=== PATIENT | female | born 1970 | race Caucasian/White ===

== ENCOUNTER → 2016-11-13 | Outpatient (CLI) | payer OTHER ==
[~2016-11-13] MED LIST: AMIT10TA6 PO; AMT10 PO; ASPCH81 PO; ASPI81TA28 PO; EPP3/2 IM; IBUP-1050 PO; LEVO75TA5 PO; OXYC1TAB3 PO; PROM25TA9 PO; SUMA100T16 PO
== END | disposition home or self-care (01) ==
LOC: C.PAPS 09:04
PROVIDERS: ATTEND Obstetrics & Gynecology
DX: Z01.419 Encounter for gynecological examination (general) (routine) without abnormal findings (principal)

== ENCOUNTER → 2016-11-19 | Outpatient (CLI) | payer OTHER | END | disposition home or self-care (01) | LOC: C.LAB 13:57 | PROVIDERS: ATTEND Obstetrics & Gynecology | DX: N95.1 Menopausal and female climacteric states (principal); G47.00 Insomnia, unspecified ==

== ENCOUNTER 2017-03-13 20:51 | Emergency (ER) | payer OTHER ==
[~2017-03-13] VITALS: Ht 162.6 cm; Wt 79.1 kg
[~2017-03-13 20:51] MED LIST changes: -AMIT10TA6 PO; -ASPI81TA28 PO; -EPP3/2 IM; -IBUP-1050 PO; -LEVO75TA5 PO; -OXYC1TAB3 PO; -PROM25TA9 PO; -SUMA100T16 PO
[2017-03-13 20:53] VITALS: TEMP 37; Ht 162.6 cm; Wt 79.1 kg
[2017-03-13] MEDS ORDERED: SODIUM CHLORIDE 0.9% 1000ML 1,000 ML IV STA ×2 (21:05)
[2017-03-13] MEDS ORDERED: ASPI81TA28 PO (21:15)
[2017-03-13] MEDS ORDERED: AMIT10TA6 PO (21:16)
[2017-03-13] MEDS ORDERED: LEVO75TA5 PO (21:17)
[2017-03-13] MEDS ORDERED: SUMA100T16 PO (21:20)
[2017-03-13] MEDS ORDERED: EPP3/2 IM (21:20)
[2017-03-13] MEDS ORDERED: IBUP-1050 PO (21:21)
[2017-03-13 21:40] LABS: URINE APPEARANCE CLEAR (CLEAR); URINE BILIRUBIN NEG (NEG); URINE COLOR YELLOW; URINE NITRITE NEG (NEG); URINE PH 6.5 (4.5-7.5); URINE SPECIFIC GRAVITY 1.017 (1.000-1.030); UROBILINOGEN NEG (NEG); ZZUR CULT IF INDIC CLEAN CATCH NO
[2017-03-13 21:41] LABS: BASO % 0.4 %; BASO ABS # 0.04 K/uL (0-0.2); COMPLETE YES; EOS % 1.7 %; IG% 0.2 %; LYMPH % 24.6 %; LYMPH ABS # 2.58 K/uL (1.2-3.4); MEAN CELL VOLUME 92.3 fL (80-100); MEAN CORPUSCULAR HGB CONC 33.6 g/dl (32-36); MEAN PLATELET VOLUME 11.4 fL (7.4-10.4); MONO % 8.3 %; NEUT % 64.8 %; PLATELET COUNT 231 K/uL (130-400); RED BLOOD COUNT 4.55 M/uL (4.2-5.4)
[2017-03-13 21:44] LABS: MANUAL MICROSCOPIC REQUIRED? NO; REVIEW REQ? NO
[2017-03-13 21:57] LABS: ALT/SGPT 32 U/L (12-78); BLOOD UREA NITROGEN 15 mg/dl (7-18); BUN/CREATININE RATIO 13.4 (10-20); CALCIUM 9.6 mg/dl (8.5-10.1); CARBON DIOXIDE 28 mmol/L (21-32); CHLORIDE 104 mmol/L (98-107); GLUCOSE 89 mg/dl (70-99); POTASSIUM 3.6 mmol/L (3.5-5.1); SODIUM 139 mmol/L (136-145)
[2017-03-13 22:01] LABS: ALKALINE PHOSPHATASE 102 U/L (45-117); AST/SGOT 23 U/L (15-37)
[2017-03-13 22:12] LABS: PREG INTERNAL NEGATIVE QC NEG CLEAR BACKGROUND; PREG INTERNAL POSITIVE QC POS CONTROL LINE
--- NOTE | 2017-03-13 22:16 | DIAGNOSTIC IMAGING REPORT ---
ABDOMINAL ULTRASOUND, RIGHT UPPER QUADRANT HISTORY: Right upper quadrant abdominal pain. COMPARISON: None. FINDINGS: Liver morphology is normal. Hepatic echogenicity is increased. A 4.8 x 2.3 x 3.2 cm hypoechoic focus is noted within the liver, adjacent to the isidro hepatis. Note is also made of a 2.5 x 2 x 2.5 cm round hypoechoic focus within segment 5 of the liver. There is no biliary ductal dilatation. No gallstones are identified. The gallbladder is partially contracted. There is no gallbladder wall thickening. There is no right hydronephrosis. The pancreatic body is normal. The head and tail are partially obscured. IMPRESSION: 1. No gallstones or biliary ductal dilatation. 2. Fatty liver. 3. Two hypoechoic foci within the liver. The 4.8 cm focus adjacent to the isidro hepatis is highly suggestive of fatty sparing. The 2.5 cm inferior right hepatic lobe focus also likely reflects fatty sparing but is indeterminate. A nonemergent MRI of the liver is recommended. Electronically signed by: Tre Liz M.D. 03/13/2017 10:15 PM Dictated Date/Time: 03/13/2017 10:09 PM
--- NOTE | 2017-03-13 23:17 | DIAGNOSTIC IMAGING REPORT ---
CT OF THE ABDOMEN AND PELVIS WITH CONTRAST CLINICAL HISTORY: Right upper quadrant abdominal pain. COMPARISON STUDY: Right upper quadrant ultrasound performed earlier today. TECHNIQUE: Following IV administration of 51 mL of Optiray-320, axial images of the abdomen and pelvis were obtained from the lung bases to the proximal femurs. Images were reviewed in the axial, sagittal, and coronal planes. IV contrast was administered without complication. CT DOSE: 533.36 mGy.cm FINDINGS: Fatty infiltration of the liver is noted. Hyperdensity within the medial segment of the liver corresponds to a hypoechoic focus on ultrasound and represents fatty sparing. A 2.5 cm round hyperdense focus within the inferior right hepatic lobe corresponds to the other hypoechoic focus by ultrasound. This also likely reflects fatty sparing. The spleen, adrenal glands, kidneys and pancreas are normal. There is no evidence for a bowel obstruction. The appendix is normal. Note is made of a 6 x 2.6 cm focus of infiltration within the right upper quadrant, located within the omentum. There is no fluid collection to suggest abscess. There is no lymphadenopathy. Skeletal structures are unremarkable with exception of marked disc space narrowing at L5-S1. This is degenerative. IMPRESSION: 1. 6 x 2.6 cm focus of infiltration within the right upper quadrant, located within the omentum. This is highly suggestive of an omental infarct, typically a self-limiting process. 2. Fatty liver. Two hyperdensities within the liver on this exam correspond to the hypoechoic foci on ultrasound. The medial segment focus represents fatty sparing. The inferior right hepatic lobe focus also likely reflects fatty sparing but a nonemergent MRI is recommended for confirmation. Electronically signed by: Tre Liz M.D. 03/13/2017 11:15 PM Dictated Date/Time: 03/13/2017 11:05 PM
[2017-03-13] MEDS ORDERED: OXYC1TAB3 PO (23:42)
[2017-03-13] MEDS ORDERED: PROM25TA9 PO (23:42)
[2017-03-13] MEDS ORDERED: OXYCODONE IR HOME PACK PO ONE (23:45)
[2017-03-13] MEDS ORDERED: PHENERGAN 25MG HOMEPACK PO ONE (23:45)
[2017-03-13 23:47] VITALS: BP 152/94; PULSE 69; O2SAT 99
--- NOTE | 2017-03-14 03:13 | EMERGENCY ROOM VISIT NOTE ---
History Report prepared by Mohinder: Suma Cerrato Under the Supervision of: Dr. Raul Pablo M.D. First contact with patient: 21:01 Chief Complaint: ABDOMINAL PAIN Stated Complaint: R UPPER ABD PAIN History of Present Illness The patient is a 46 year old female who presents to the Emergency Room with complaints of sudden right upper quadrant abdominal pain beginning 4 days ago. The patient states that within the past 4 days the pain has been moving around her abdomen. She rates the pain at a 5/10. The patient states that at first she thought the pain was gas or a pulled muscle after dancing. The patient denies falling or getting hit in her abdomen. Moving, coughing, and taking deep breaths exacerbates the pain. She reports that she feels bloated. The patient took 2 Motrin 1 hour prior to arrival for a headache. The patient states that she recently traveled to [place] which was a [address] The patient denies any history of stomach problems. She has a history of 2 lumbar laminectomies. She also states that she has no family history of gallbladder problems. Pt denies LOC, fevers, chills, diaphoresis, visual changes, neck pain , chest pain, breathing difficulties, nausea, vomiting, back pain, melena, hematochezia, urinary symptoms, numbness, weakness, lymphadenopathy, rash, or other complaints. Source of History: patient Onset: 4 days ago Position: abdomen (RUQ) Symptom Intensity: rated at a 5/10 Modifying Factors (Worsening): breathing (deep breaths), movement, other ( coughing) Associated Symptoms: + headache Review of Systems See HPI for pertinent positives and negatives. A total of ten systems were reviewed and were otherwise negative. Past Medical & Surgical Medical Problems: (1) Asthma (2) Bronchitis (3) Skin problem Surgical Problems: (1) H/O laminectomy Family History Cancer Diabetes mellitus FH: kidney disease Hypertension Social History Smoking Status: Former Smoker Alcohol Use: occasionally Drug Use: none Marital Status: Occupation Status: employed Current/Historical Medications Scheduled Amitriptyline Hcl (Elavil), 10 MG PO HS Aspirin (Aspirin Ec), 81 MG PO HS Ibuprofen (Advil), 400 MG PO DAILY Levothyroxine Sodium (Levothyroxine Sodium), 1 TAB PO QAM Scheduled PRN Epinephrine (Epipen), 0.3 MG IM UD PRN for ALLERGIC REACTION Oxycodone Ir (Roxicodone Ir), 1-2 TAB PO Q4H PRN for Pain Promethazine Hcl (Phenergan), 25 MG PO Q6H PRN for Nausea Sumatriptan Succinate (Imitrex), 100 MG PO Q2H PRN for Migraine Allergies Coded Allergies: NUTS (Unverified Allergy, Intermediate, HIVES, 03/13/17) Iodine (Verified Allergy, Unknown, 03/13/17) Penicillins (Verified Allergy, Unknown, 10/18/09) Sulfa Drugs (Verified Allergy, Unknown, 03/13/17) Sulfamethoxazole (Verified Allergy, Unknown, 03/13/17) Uncoded Allergies: SEAFOOD (Allergy, Intermediate, HIVES, 08/19/11) SULFA (Allergy, Mild, RASH, 08/19/11) SEAFOOD,NUTS (Allergy, Unknown, 10/26/02) Physical Exam Vital Signs Date Time Temp Pulse Resp B/P (MAP) Pulse Ox O2 Delivery O2 Flow Rate FiO2 03/13/17 23:47 69 18 152/94 99 Room Air 03/13/17 22:24 74 12 138/85 97 03/13/17 20:53 37.0 82 18 175/94 97 Room Air Physical Exam GENERAL: Awake, alert, uncomfortable-appearing, in no distress HENT: Normocephalic, atraumatic. Oropharynx unremarkable. EYES: Normal conjunctiva. Sclera non-icteric. NECK: Supple. No nuchal rigidity. FROM. No JVD. RESPIRATORY: Clear to auscultation. CARDIAC: Regular rate, normal rhythm. Extremities warm and well perfused. Pulses equal. ABDOMEN: Soft, non-distended. Very exquisite RUQ tenderness. Tenderness to percussion. No rebound. Guarding. No masses. RECTAL: Deferred. MUSCULOSKELETAL: Chest examination reveals no tenderness. The back is symmetrical on inspection without obvious abnormality. There is no CVA tenderness to palpation. No joint edema. LOWER EXTREMITIES: Calves are equal size bilaterally and non-tender. No edema. No discoloration. NEURO: Normal sensorium. No sensory or motor deficits noted. SKIN: No rash or jaundice noted. Medical Decision & Procedures ER Provider Diagnostic Interpretation: Radiology results as stated below per my review and radiologist interpretation: ABDOMINAL ULTRASOUND, RIGHT UPPER QUADRANT HISTORY: Right upper quadrant abdominal pain. COMPARISON: None. FINDINGS: Liver morphology is normal. Hepatic echogenicity is increased. A 4.8 x 2.3 x 3.2 cm hypoechoic focus is noted within the liver, adjacent to the isidro hepatis. Note is also made of a 2.5 x 2 x 2.5 cm round hypoechoic focus within segment 5 of the liver. There is no biliary ductal dilatation. No gallstones are identified. The gallbladder is partially contracted. There is no gallbladder wall thickening. There is no right hydronephrosis. The pancreatic body is normal. The head and tail are partially obscured. IMPRESSION: 1. No gallstones or biliary ductal dilatation. 2. Fatty liver. 3. Two hypoechoic foci within the liver. The 4.8 cm focus adjacent to the isidro hepatis is highly suggestive of fatty sparing. The 2.5 cm inferior right hepatic lobe focus also likely reflects fatty sparing but is indeterminate. A nonemergent MRI of the liver is recommended. Electronically signed by: Tre Liz M.D. 03/13/2017 10:15 PM Dictated Date/Time: 03/13/2017 10:09 PM [[id number]]: Radiology results as stated below per my review and radiologist interpretation CT OF THE ABDOMEN AND PELVIS WITH CONTRAST CLINICAL HISTORY: Right upper quadrant abdominal pain. COMPARISON STUDY: Right upper quadrant ultrasound performed earlier today. TECHNIQUE: Following IV administration of 51 mL of Optiray-320, axial images of the abdomen and pelvis were obtained from the lung bases to the proximal femurs. Images were reviewed in the axial, sagittal, and coronal planes. IV contrast was administered without complication. CT DOSE: 533.36 mGy.cm FINDINGS: Fatty infiltration of the liver is noted. Hyperdensity within the medial segment of the liver corresponds to a hypoechoic focus on ultrasound and represents fatty sparing. A 2.5 cm round hyperdense focus within the inferior right hepatic lobe corresponds to the other hypoechoic focus by ultrasound. This also likely reflects fatty sparing. The spleen, adrenal glands, kidneys and pancreas are normal. There is no evidence for a bowel obstruction. The appendix is normal. Note is made of a 6 x 2.6 cm focus of infiltration within the right upper quadrant, located within the omentum. There is no fluid collection to suggest abscess. There is no lymphadenopathy. Skeletal structures are unremarkable with exception of marked disc space narrowing at L5-S1. This is degenerative. IMPRESSION: 1. 6 x 2.6 cm focus of infiltration within the right upper quadrant, located within the omentum. This is highly suggestive of an omental infarct, typically a self-limiting process. 2. Fatty liver. Two hyperdensities within the liver on this exam correspond to the hypoechoic foci on ultrasound. The medial segment focus represents fatty sparing. The inferior right hepatic lobe focus also likely reflects fatty sparing but a nonemergent MRI is recommended for confirmation. Electronically signed by: Tre Liz M.D. 03/13/2017 11:15 PM Dictated Date/Time: 03/13/2017 11:05 PM Laboratory Results 03/13/17 21:20 Red Blood Count 4.55, Mean Corpuscular Volume 92.3, Mean Corpuscular Hemoglobin 31.0, Mean Corpuscular Hemoglobin Concent 33.6, Mean Platelet Volume 11.4, Neutrophils (%) (Auto) 64.8, Lymphocytes (%) (Auto) 24.6, Monocytes (%) (Auto) 8.3, Eosinophils (%) (Auto) 1.7, Basophils (%) (Auto) 0.4, Neutrophils # (Auto) 6.81, Lymphocytes # (Auto) 2.58, Monocytes # (Auto) 0.87, Eosinophils # (Auto) 0.18, Basophils # (Auto) 0.04 03/13/17 21:20 Test 03/13/17 21:10 03/13/17 21:20 Urine Color YELLOW Urine Appearance CLEAR (CLEAR) Urine pH 6.5 (4.5-7.5) Urine Specific [place] 1.017 (1.000-1.030) Urine Protein NEG (NEG) Urine Glucose (UA) NEG (NEG) Urine Ketones NEG (NEG) Urine Occult Blood NEG (NEG) Urine Nitrite NEG (NEG) Urine Bilirubin NEG (NEG) Urine Urobilinogen NEG (NEG) Urine Leukocyte Esterase NEG (NEG) White Blood Count 10.50 K/uL (4.8-10.8) Red Blood Count 4.55 M/uL (4.2-5.4) Hemoglobin 14.1 g/dL (12.0-16.0) Hematocrit 42.0 % (37-47) Mean Corpuscular Volume 92.3 fL (80-100) Mean Corpuscular Hemoglobin 31.0 pg (25-34) Mean Corpuscular Hemoglobin Concent 33.6 g/dl (32-36) Platelet Count 231 K/uL (130-400) Mean Platelet Volume 11.4 fL (7.4-10.4) Neutrophils (%) (Auto) 64.8 % Lymphocytes (%) (Auto) 24.6 % Monocytes (%) (Auto) 8.3 % Eosinophils (%) (Auto) 1.7 % Basophils (%) (Auto) 0.4 % Neutrophils # (Auto) 6.81 K/uL (1.4-6.5) Lymphocytes # (Auto) 2.58 K/uL (1.2-3.4) Monocytes # (Auto) 0.87 K/uL (0.11-0.59) Eosinophils # (Auto) 0.18 K/uL (0-0.5) Basophils # (Auto) 0.04 K/uL (0-0.2) RDW Standard Deviation 45.3 fL (36.4-46.3) RDW Coefficient of Variation 13.5 % (11.5-14.5) Immature Granulocyte % (Auto) 0.2 % Immature Granulocyte # (Auto) 0.02 K/uL (0.00-0.02) Anion Gap 7.0 mmol/L (3-11) Est Creatinine Clear Calc Drug Dose 65.1 ml/min Estimated GFR () 69.7 Estimated GFR (Non- 60.2 BUN/Creatinine Ratio 13.4 (10-20) Calcium Level 9.6 mg/dl (8.5-10.1) Total Bilirubin 0.2 mg/dl (0.2-1) Direct Bilirubin < 0.1 mg/dl (0-0.2) Aspartate Amino Transf (AST/SGOT) 23 U/L (15-37) Alanine Aminotransferase (ALT/SGPT) 32 U/L (12-78) Alkaline Phosphatase 102 U/L (45-117) Total Protein 7.7 gm/dl (6.4-8.2) Albumin 3.9 gm/dl (3.4-5.0) Lipase 125 U/L (73-393) Human Chorionic Gonadotropin, Qual NEG (NEG) Laboratory results reviewed by me Medications Administered Medications (Trade) Dose Ordered Sig/[place] Route Start Time Stop Time Status Last Admin Dose Admin Sodium Chloride 1,000 ml @ 125 mls/hr Q8H STAT IV 03/13/17 21:05 03/14/17 00:41 DC 03/13/17 21:35 125 MLS/HR Sodium Chloride 1,000 ml @ 999 mls/hr Q1H1M STAT IV 03/13/17 21:05 03/13/17 22:05 DC 03/13/17 21:34 999 MLS/HR Oxycodone HCl (Roxicodone Immediate Rel 5MG Home Pack) 1 homepack UD ONCE PO 03/13/17 23:45 03/13/17 23:46 DC 03/13/17 23:46 1 HOMEPACK Promethazine HCl (Phenergan 25MG Home Pack) 1 homepack UD ONCE PO 03/13/17 23:45 03/13/17 23:46 DC 03/13/17 23:46 1 HOMEPACK ED Course 2104: The patient was evaluated in room C11. A complete history and physical exam was performed. 2105: Ordered Sodium Chloride 1,000 ml @ 999 mls/hr IV, Sodium Chloride 1,000 ml @ 125 mls/hr IV. 2244: The patient is still uncomfortable. We will get a CT scan of her. 2331: I updated the patient on her test results. 2345: Ordered Promethazine HCl 1 homepack PO, Oxycodone HCl 1 homepack PO. 2355: I reevaluated the patient. Discussed results and discharge instructions: She verbalized understanding and agreement. The patient is ready for discharge. Medical Decision Medication Reconciliation: I attest that I have personally reviewed the patient' s current medication list Blood pressure screening: Patient was found to have an elevated blood pressure and was referred to their primary doctor for recheck and further treatment. Triage Nursing notes reviewed. The patient's presentation and history were concerning for abdominal pain. Etiologies such as appendicitis, diverticulitis, obstruction, inflammatory bowel disease, renal colic, PUD, biliary pathology, pancreatitis, mesenteric ischemia, aortic pathology, infections, genitourinary, UTI, perforated viscus, as well as others were entertained. The patient was evaluated. She had tenderness in the right upper quadrant. This was concerning for the above etiologies but I was most concerned about a gallbladder source. The patient had blood work obtained. She was hydrated. Ultrasound was ordered. This was negative for biliary pathology however there were some abnormalities noted about the liver. The patient was counseled on this and will need a nonemergent outpatient liver MRI. The patient underwent CT imaging as she was very uncomfortable and the ultrasound was unremarkable. Her cbc, chemistry panel, LFTs, lipase, and urinalysis were negative. The patient underwent CT imaging in this did reveal an omental infarction. I suspect that this is the cause of the pain as it is exactly where she is tender on examination. This would explain her lack of fever, anorexia and other symptoms. I suspect that this was a spontaneous event. I discussed conservative management with the patient and she felt very comfortable. She will use NSAIDs, Tylenol, and when necessary oxycodone. In case she has any nausea from the condition or pain medication she will be prescribed Phenergan as well. The patient will need close outpatient follow-up. Her blood pressure was mildly elevated. If she worsens in any way she will be back to the Emergency Room. There is no indication for antibiotics at this time. I gave my usual and customary discussion regarding this issue. By the evaluation outlined above other emergent etiologies such as those listed in the differential, as well as others, were deemed relatively unlikely. The patient was educated about the findings as listed above. All questions were answered and the patient was pleased with the treatment. Return instructions were outlined and the patient was discharged in stable condition. The patient was referred to her for follow-up for a recheck of the current condition. [place] Drug Monitoring Program Search Results: patient reviewed within database, no issues identified Impression Primary Impression: Omental infarction Scribe Attestation The scribe's documentation has been prepared under my direction and personally reviewed by me in its entirety. I confirm that the note above accurately reflects all work, treatment, procedures, and medical decision making performed by me. Departure Information Dispostion Home / Self-Care Prescriptions Oxycodone Ir (Roxicodone Ir) 5 Mg Tab 1-2 TAB PO Q4H Y for Pain, #15 TAB Prov: Raul Pablo MD 03/13/17 Promethazine Hcl (Phenergan) 25 Mg Tab 25 MG PO Q6H Y for Nausea, #8 TAB Prov: Raul Pablo MD 03/13/17 Referrals Rocky Rhodes M.D. ([facility]) (PCP) Forms Call Back Authorization, HOME CARE DOCUMENTATION FORM, IMPORTANT VISIT INFORMATION Patient Instructions My [facility] [place] [employer] Additional Instructions ABDOMINAL PAIN INSTRUCTIONS: Diagnosis: Spontaneous Omental infarction Oxycodone (OxyIR) 5mg: Take 1-2 pills every four hours for breakthrough pain. Avoid alcohol, operating machinery or dangerous equipment, working on ladders or roofs, DRIVING, or situations where being under the influence may be dangerous. It is recommended to use an [id number]-abw-[id number] stool softener such as Colace, 100mg twice daily while taking this medication to avoid constipation. Ibuprofen(Motrin, Advil) may be used for fever or pain. Use 600mg every six hours as needed. Take with food. Avoid using more than 2400mg in a 24 hour period. Do not use 2400mg per day for more than three consecutive days without physician direction. Prolonged inappropriate use can lead to stomach upset or ulcers. (AND/OR) Acetaminophen(Tylenol) may be used for fever or pain. Use 1000mg every six hours as needed. Avoid using more than 4000mg in a 24 hour period. Phenergan(promethazine) tablets 25mg: Take one every six hours as needed for nausea. Avoid alcohol, operating machinery or dangerous equipment, working on ladders or roofs, DRIVING, or situations where being under the influence may be dangerous. Review the package insert for all your medications. This is necessary as important health information is provided for your benefit and current care. Rest and drink plenty of fluids as tolerated. Slow sips of water or sports drinks are recommended instead of large amounts all at once. Continue current medications. Return to the ER immediately for worsening or persistent abdominal pain, vomiting, fevers, chest pains, difficulty breathing, black or bloody stools, worsening of your condition, or as needed. Follow up with your primary physician first thing this week for a recheck of your current condition.
== END 2017-03-13 23:49 | disposition home or self-care (01) ==
LOC: C.EDB 20:52 → C.EDC 23:49
DX: K55.069 Acute infarction of intestine, part and extent unspecified (principal); J45.909 Unspecified asthma, uncomplicated; Z80.9 Family history of malignant neoplasm, unspecified; Z83.3 Family history of diabetes mellitus; Z84.1 Family history of disorders of kidney and ureter; Z82.49 Family history of ischemic heart disease and other diseases of the circulatory system; Z87.891 Personal history of nicotine dependence; Z79.82 Long term (current) use of aspirin; Z79.899 Other long term (current) drug therapy

== ENCOUNTER → 2017-11-29 | Outpatient (CLI) | payer OTHER ==
[~2017-11-29] MED LIST changes: +AMIT10TA6 PO; -AMT10 PO; -ASPCH81 PO; +ASPI81TA28 PO; +EPP3/2 IM; +IBUP-1050 PO; +LEVO75TA5 PO; +SUMA100T16 PO
== END | disposition home or self-care (01) ==
LOC: C.PAPS 14:48
PROVIDERS: ATTEND Obstetrics & Gynecology
DX: Z01.419 Encounter for gynecological examination (general) (routine) without abnormal findings (principal)

== ENCOUNTER 2020-01-08 04:02 | Observation (INO) ==
--- OUTSIDE RECORDS SUMMARY | 2020-01-08 04:05 | External Medical Summary | Continuity of Care Document ---
:1970 Author Name Efrain German, Provider Address Unavailable Unavailable , Care Team Providers Name Role Phone Nima German, Devin Unavailable [email or web address] TATYANA MACIAS Unavailable Unavailable Unavailable Unavailable Unavailable Problems Paronychia (681.9) Hand dermatitis (692.9) (L30.9) Allergies and Adverse Reactions Sulfa Drugs (Allergy) Nuts (Allergy) Shellfish (Allergy) Medications Lidex OINT; APPLY SPARINGLY TO AFFECTED AREA(S) ONCE DAILY P M Refills: 0 Metrogel 0.75 % GEL; APPLY AND RUB IN A THIN FILM TO AFFECTED AREAS DAILY NEEDED Refills: 0 Amitriptyline HCl - 10 MG Oral Tablet; TAKE 1/2 TABLET AT BE [facility]. Refills: 0 Aspirin 81 MG TABS; TAKE 1 TABLET DAILY. Refills: 0 Nystatin-Triamcinolone 202400-2.1 UNIT/G M-% External Ointment; APPLY SPARINGLY TO AFFECTED AREA(S) TWICE DAILY Maxi Herring Start: 22-Oct-2014 Quantity: 1 30 GM Tube Refills: 2 Procedures Procedures not documented Immunizations Immunizations not documented Plan of Treatment Planned Observations Planned Goals not documented Results No Known Results Results not documented
--- OUTSIDE RECORDS SUMMARY | 2020-01-08 04:05 | External Medical Summary | Continuity of Care Document ---
:1970 Author Name Efrain German, Provider Address Unavailable Unavailable , Care Team Providers Name Role Phone Nima German, Devin Unavailable [email or web address] TATYANA MACIAS Unavailable Unavailable Unavailable Unavailable Unavailable Problems Paronychia (681.9) Hand dermatitis (692.9) (L30.9) Allergies and Adverse Reactions Sulfa Drugs (Allergy) Nuts (Allergy) Shellfish (Allergy) Medications Nystatin-Triamcinolone 421088-9.1 UNIT/G M-% External Ointment; APPLY SPARINGLY TO AFFECTED AREA(S) TWICE DAILY Maxi Herring Start: 22-Oct-2014 Quantity: 1 30 GM Tube Refills: 2 Amitriptyline HCl - 10 MG Oral Tablet; TAKE 1/2 TABLET AT BE [facility]. Refills: 0 Aspirin 81 MG TABS; TAKE 1 TABLET DAILY. Refills: 0 Lidex OINT; APPLY SPARINGLY TO AFFECTED AREA(S) ONCE DAILY P M Refills: 0 Metrogel 0.75 % GEL; APPLY AND RUB IN A THIN FILM TO AFFECTED AREAS DAILY NEEDED Refills: 0 Procedures Procedures not documented Immunizations Immunizations not documented Plan of Treatment Planned Observations Planned Goals not documented Results No Known Results Results not documented
[2020-01-08] MEDS ORDERED: FAMOTIDINE 20MG IV PUSH 20 MG/5 ML SYR IV STA (04:28)
[2020-01-08] MEDS ORDERED: GI COCKTAIL ED USE PO ONE (04:28)
[2020-01-08] MEDS ORDERED: ONDANSETRON INJ 2 MG/ML 2 ML VIAL IV STA (04:28)
[2020-01-08] MEDS ORDERED: SODIUM CHLORIDE 0.9% 1000ML 1,000 ML IV SCH (04:30)
[2020-01-08 04:52] LABS: Basophils # (auto) 0.03 K/uL (0-0.2); Basophils % (auto) 0.2 %; Eosinophils # (auto) 0.02 K/uL (0-0.5); Eosinophils % (auto) 0.2 %; Hematocrit (blood only) 40.1 % (37-47); Hemoglobin 13.3 g/dL (12.0-16.0); Immature Granulocytes # (auto) 0.03 K/uL (0.00-0.02); Immature Granulocytes % (auto) 0.2 %; Lymphocytes # (auto) 1.26 K/uL (1.2-3.4); Mean Corpuscular Hemoglobin 31.4 pg (25-34); Mean Corpuscular Hgb Conc 33.2 g/dL (32-36); Mean Corpuscular Volume 94.6 fL (80-100); Mean Platelet Volume 11.8 fL (7.4-10.4); Monocytes % (auto) 4.8 %; Neutrophils # (auto) 10.68 K/uL (1.4-6.5); Neutrophils % (auto) 84.6 %; Platelet Count 256 K/uL (130-400); RDW Coefficient of Variation 13.5 % (11.5-14.5); RDW Standard Deviation 46.3 fL (36.4-46.3); Red Blood Count 4.24 M/uL (4.2-5.4); White Blood Count 12.62 K/uL (4.8-10.8)
[2020-01-08 05:08] LABS: Alanine Aminotransferase 42 U/L (12-78); Albumin Level 4.1 gm/dl (3.4-5.0); Aspartate Aminotransferase 25 U/L (15-37); BUN Creatinine Ratio 18.8 (10-20); Blood Urea Nitrogen 18 mg/dl (7-18); Calcium 9.2 mg/dl (8.5-10.1); Carbon Dioxide 26 mmol/L (21-32); Chloride 109 mmol/L (98-107); Creatinine Clr Calc Pharmacy 73.3 ml/min; Est GFR (African American) 80.5; Est GFR (Non-African American) 69.4; Glucose 132 mg/dl (70-99); Lipase 114 U/L (73-393); Potassium 3.5 mmol/L (3.5-5.1); Sodium 142 mmol/L (136-145)
[2020-01-08 05:13] LABS: Albumin Globulin Ratio 1.1 (0.9-2); Alkaline Phosphatase 97 U/L (45-117); Bilirubin,Total 0.3 mg/dl (0.2-1); Globulin 3.9 gm/dl (2.5-4.0); Troponin I < 0.015 ng/ml (0-0.045)
[2020-01-08 05:14] LABS: Appearance Urine Clear (Clear); Bacteria Urine Automated Negative (Negative); Bilirubin Urine Negative (Negative); Blood Urine Negative (Negative); Color Urine Yellow; Epithelial Cell Urine Auto >30 /lpf (0-5); Glucose Urine UA Trace (Negative); Ketones Urine Trace (Negative); Leukocyte Esterase Urine Negative (Negative); Nitrite Urine Negative (Negative); Protein Urine 1+ (Negative); Specific Gravity Urine 1.029 (1.000-1.030); Urobilinogen Urine Negative (Negative); pH Urine 6.5 (4.5-7.5)
[2020-01-08] MEDS ORDERED: CIPROFLOXACIN / D5W 400 MG/200 ML BAG IV SCH ×2 (06:00→22:00)
[2020-01-08] MEDS: MoRPHine SULFATE 4 MG/ML 1 ML CARP\\VIAL IV STA ×2 (06:01→06:23)
--- NOTE | 2020-01-08 06:51 | Emergency Department Note ---
History of Present Illness General Chief complaint: GI Assessment Stated complaint: HEARTBURN SINCE 10PM Time Seen by Provider: 01/08/20 04:10 History of Present Illness Maximum Pain Intensity: 7 This is a 49-year-old female presenting to the emergency department for evaluation of epigastric abdominal pain worsening over the past 4 to 5 hours. The patient states around 10 PM yesterday she began with her discomfort. She has been followed by her primary care physician the past few weeks for GERD-like symptoms. The patient has been keeping a food diary, and it does seem that higher fat foods seem to exacerbate her symptoms. She is on Prilosec, which has not significantly helped her symptoms. Patient does not have a history of gallbladder surgery. She rates her current pain a 7/10. She denies chance of . Home Medications Home Medications Medication Instructions Recorded Confirmed Type epinephrine 0.3 mg IM UD PRN 01/08/20 01/08/20 History fluticasone propionate [Flovent 2 puff INHALATION BID 01/08/20 01/08/20 History HFA] levothyroxine 100 mcg PO DAILY 01/08/20 01/08/20 History polyethylene glycol 3350 [Miralax] 8.5 g PO DAILY 01/08/20 01/08/20 History sumatriptan succinate 100 mg PO UD PRN 01/08/20 01/08/20 History Allergies Allergy/AdvReac Type Severity Reaction Status Date / Time nut - unspecified Allergy Intermediate HIVES Unverified 01/08/20 04:17 iodine Allergy Unknown Unknown Verified 01/08/20 04:17 Penicillins Allergy Unknown Unknown Verified 01/08/20 04:17 Sulfa (Sulfonamide Allergy Unknown Unknown Verified 01/08/20 04:17 Antibiotics) sulfamethoxazole Allergy Unknown Unresponsiv Verified 01/08/20 04:17 e SEAFOOD Allergy Intermediate HIVES Uncoded 01/08/20 04:17 SULFA Allergy Mild RASH Uncoded 01/08/20 04:17 SEAFOOD,NUTS Allergy Unknown Unknown Uncoded 01/08/20 04:17 Past Med/Surg History Medical History (Updated 01/08/20 @ 06:51 by Nish Nair PA-C) Asthma Bronchitis Omental infarction (Acute) Surgical History (Updated 01/08/20 @ 06:48 by Nish Nair PA-C) H/O laminectomy (Resolved) Social History Preferred Language: Turkish Feels Safe at Home: Yes Smoking Status: Former smoker Review of Systems A total of 10 systems reviewed and were otherwise negative Physical Exam Vital Signs Vital Signs - 24 hr 01/08/20 04:06 01/08/20 04:17 01/08/20 04:53 Temperature 36.8 C 36.5 C Temperature Source Oral Oral Pulse Rate 66 Pulse Rate [Right Apical] Respiratory Rate 20 19 Respiratory Effort / Characteristics Non-Labored Spontaneous Non-Labored Respiratory Depth Normal Normal Respiratory Pattern Regular Blood Pressure 163/78 H Blood Pressure [Right Arm] 152/92 H Blood Pressure Mean 106 Blood Pressure Mean [Right Arm] 112 Blood Pressure Position [Right Arm] Lying Pulse Oximetry 100 99 Oxygen Delivery Method Room Air Room Air Room Air Sepsis Recent Fever Within 48 Hours No Sepsis Action Taken by Nursing No Action Required 01/08/20 06:03 Temperature Temperature Source Pulse Rate Pulse Rate [Right Apical] 64 Respiratory Rate 16 Respiratory Effort / Characteristics Respiratory Depth Respiratory Pattern Blood Pressure Blood Pressure [Right Arm] 154/89 H Blood Pressure Mean Blood Pressure Mean [Right Arm] 110 Blood Pressure Position [Right Arm] Pulse Oximetry 99 Oxygen Delivery Method Room Air Sepsis Recent Fever Within 48 Hours Sepsis Action Taken by Nursing VITALS: Vitals are noted on the nurse's note and reviewed by myself. Vital signs stable. GENERAL: Well-developed, well-nourished, white female, who is in no acute distress and resting comfortably. Patient is cooperative with the examination. HEAD: Normocephalic atraumatic. MOUTH: Mucous membranes moist. Tonsils are not enlarged. Pharynx without erythema, blood, or exudate. Uvula midline. Airway patent. NECK: Supple without nuchal rigidity. No lymphadenopathy. No thyromegaly. Ce rvical spine is nontender. HEART: Regular rate and rhythm without murmurs gallops or rubs. LUNGS: Clear to auscultation bilaterally without wheezes, rales or rhonchi. No retractions or accessory muscle use. ABDOMEN: Positive normal bowel sounds x 4. Soft with epigastric and right upper quadrant tenderness. No lower abdominal tenderness. No CVA tenderness. No rebound or guarding. MUSCULOSKELETAL: No muscle atrophy, erythema, or edema noted. Full range of motion in all extremities. NEURO: Patient was alert and oriented to person place and time. CN II through XII grossly intact. SKIN: The skin was without rashes, erythema, edema, or bruising. Capillary refill less than 2 seconds. Course Administered Medications Discontinued Medications Al Hydrox/Mg Hydrox/Simethicone () 1 dose PO ONE ONE Stop: 01/08/20 04:29 Last Admin: 01/08/20 04:46 Dose: 1 dose Documented by: [id number] Sodium Chloride (Nss 1000ml) 1,000 mls @ 999 mls/hr IV .Q1H1M BRODY Stop: 01/08/20 05:30 Last Infusion: 01/08/20 05:39 Dose: 0 mls/hr Documented by: [id number] Admin: 01/08/20 04:41 Dose: 999 mls/hr Documented by: [id number] Famotidine (Pepcid 20mg Iv Push) 20 mg in 5 mls @ 2.5 mls/min IV NOW STA Stop: 01/08/20 04:29 Last Admin: 01/08/20 04:46 Dose: 2.5 mls/min Documented by: [id number] Morphine Sulfate (Morphine Sulfate) 4 mg IV NOW STA Stop: 01/08/20 05:59 Last Admin: 01/08/20 06:23 Dose: Not Given Documented by: [id number] Ondansetron HCl (Zofran) 4 mg IV NOW STA Stop: 01/08/20 04:29 Last Admin: 01/08/20 04:46 Dose: 4 mg Documented by: [id number] Medical Decision Making Differential Diagnosis Differential diagnosis: Etiologies such as biliary colic, cholecystitis, hepatitis, pancreatitis, cardiac disease, pancreatitis, gastritis, peptic ulcer disease, appendicitis, cystitis, diverticulitis, mesenteric ischemia, inflammatory bowel disease, ileus, bowel obstruction, testicular/adnexal torsion, aortic pathology, shingles, as well as others were considered Laboratory Data Result diagrams: 01/08/20 04:40 01/08/20 04:40 Lab Results 01/08/20 01/08/20 01/08/20 Range/Units 04:40 04:40 04:40 WBC 12.62 H (4.8-10.8) K/uL RBC 4.24 (4.2-5.4) M/uL Hgb 13.3 (12.0-16.0) g/dL Hct 40.1 (37-47) % MCV 94.6 (80-100) fL MCH 31.4 (25-34) pg MCHC 33.2 (32-36) g/dL RDW Std Deviation 46.3 (36.4-46.3) fL RDW Coeff of [place] 13.5 (11.5-14.5) % Plt Count 256 (130-400) K/uL MPV 11.8 H (7.4-10.4) fL Immature Gran % (Auto) 0.2 % Neut % (Auto) 84.6 % Lymph % (Auto) 10.0 % [place] % (Auto) 4.8 % Eos % (Auto) 0.2 % Baso % (Auto) 0.2 % Immature Gran # (Auto) 0.03 H (0.00-0.02) K/uL Neut # (Auto) 10.68 H (1.4-6.5) K/uL Lymph # (Auto) 1.26 (1.2-3.4) K/uL [place] # (Auto) 0.60 H (0.11-0.59) K/uL Eos # (Auto) 0.02 (0-0.5) K/uL Baso # (Auto) 0.03 (0-0.2) K/uL Sodium 142 (136-145) mmol/L Potassium 3.5 (3.5-5.1) mmol/L Chloride 109 H (98-107) mmol/L Carbon Dioxide 26 (21-32) mmol/L Anion Gap 7.0 (3-11) BUN 18 (7-18) mg/dl Creatinine 0.96 (0.6-1.2) mg/dl Est Cr Clr Drug Dosing 73.3 ml/min Est GFR ( Amer) 80.5 Est GFR (Non-Af Amer) 69.4 BUN/Creatinine Ratio 18.8 (10-20) Glucose 132 H (70-99) mg/dl Calcium 9.2 (8.5-10.1) mg/dl Total Bilirubin 0.3 (0.2-1) mg/dl AST 25 (15-37) U/L ALT 42 (12-78) U/L Alkaline Phosphatase 97 (45-117) U/L Troponin I < 0.015 (0-0.045) ng/ml Total Protein 8.0 (6.4-8.2) gm/dl Albumin 4.1 (3.4-5.0) gm/dl Globulin 3.9 (2.5-4.0) gm/dl Albumin/Globulin Ratio 1.1 (0.9-2) Lipase 114 (73-393) U/L Urine Color Yellow Urine Appearance Clear (Clear) Urine pH 6.5 (4.5-7.5) Ur Specific [place] 1.029 (1.000-1.030) Urine Protein 1+ H (Negative) Urine Glucose (UA) Trace H (Negative) Urine Ketones Trace H (Negative) Urine Blood Negative (Negative) Urine Nitrite Negative (Negative) Urine Bilirubin Negative (Negative) Urine Urobilinogen Negative (Negative) Ur Leukocyte Esterase Negative (Negative) Urine WBC (Auto) 1-5 (0-5) /hpf Urine RBC (Auto) 5-10 H (0-4) /hpf U Hyaline Cast (Auto) 1-5 (0-5) /lpf U Epithel Cells (Auto) >30 H (0-5) /lpf Urine Bacteria (Auto) Negative (Negative) Imaging Data Radiologist's Impression: Preliminary Findings Only See Final Report For Complete Findings US RUQ: COMPARISON: CT and Ultrasound dated 03/13/17 Gallbladder wall thickening with pericholecystic fluid and a sonographic Flor's sign. Gallbladder sludge is seen. Findings may suggest acute acalculous cholecystitis. Fatty liver. 2.7 cm area hypoechoic lesion, previously 2.5-cm, focal fatty sparing or other liver lesion. No biliary dilatation. Right kidney is unremarkable. ECG Data Attestation: I personally reviewed and interpreted this ECG as follows: Indication: + abdominal pain Additional Comments: Normal sinus rhythm @61 bpm Normal ECG When compared with ECG of 16-AUG-2008 12:58, No significant change was found MDM Narrative Physical exam and history were performed. Nursing notes, EMR, and Medication List were personally reviewed. Patient appears to have epigastric abdominal pain bringing her to the ER tonight. IV access was established and labs were obtained. The patient was g iven IV Pepcid and a GI cocktail by mouth. She was given normal saline through the IV. Ultrasound was performed. The patient's blood work is as above and was reviewed. She does have a minimally elevated white blood cell count of 12.6. She does not have a significant anemia or gross electrolyte imbalance. Lipase and transaminases are not diagnostic. Troponin x1 is negative. Urine is without distinct evidence of infection. Ultrasound was reviewed by myself and radiology, and does seem con sistent with acute acalculous cholecystitis. I did update the patient with her findings, and did offer her morphine, which she declined. The case was discussed with the on-call general surgeon, Dr. Feldman, who states he will evaluate the patient here in the ER. Please see the surgical team dictation for further patient course, plan, and disposition. The chart was completed utilizing [employer] Speech Voice Recognition Software. Grammatical errors, random word insertions, pronoun errors, and incomplete sentences are an occasional consequence of this system due to software limitations, ambient noise, and hardware issues. Any formal questions or concerns about the content, text, or information contained within the body of this dictation should be directly addressed to the provider for clarification. . Impression & Plan Acute acalculous cholecystitis, Epigastric abdominal pain Discharge Plan Visit Data Chief Complaint: GI Assessment Stated Complaint: HEARTBURN SINCE 10PM ED Provider: Lorraine Garcia ED Midlevel Provider: Nish Nair Discharge Problem: Acute acalculous cholecystitis, Epigastric abdominal pain Forms Stand Alone Forms: My [facility] [employer] Prescriptions Prescriptions: No Action levothyroxine 100 mcg tablet 100 mcg PO DAILY RF: 0 epinephrine 0.3 mg/0.3 mL auto-injector 0.3 mg IM UD PRN (Reason: Allergic Reaction) RF: 0 Flovent HFA 110 mcg/actuation HFA aerosol inhaler 2 puff INHALATION BID RF: 0 sumatriptan succinate 100 mg tablet 100 mg PO UD PRN (Reason: Migraine Headache) RF: 0 polyethylene glycol 3350 [Miralax] 17 gram/dose Powder 8.5 g PO DAILY RF: 0 Referrals Referrals: Rocky Rhodes MD [Primary Care Provider] -
--- NOTE | 2020-01-08 06:51 | XRay Report ---
XR chest 1V portable CLINICAL HISTORY: epigastric pain COMPARISON STUDY: August 2008 FINDINGS: The cardiac and mediastinal contours are normal. There is no evidence of focal pulmonary co nsolidation. There is no evidence of failure. No pleural effusions are visualized.[There is no free i ntraperitoneal air. IMPRESSION: No active disease in the chest. ACT 112: Negative or not required by law. Electronically signed by: Nelson Ryan M.D. 01/08/2020 6:49 AM
--- NOTE | 2020-01-08 07:13 | Surgery Consultation ---
Date of Consultation January 08, 2020 Assessment & Plan (1) Acute acalculous cholecystitis: pt is a 49 year-old female who presents to ER with 9 hours acute epigastric and RUQ pain, IMP: acute cholecystitis, sludge Plan, I recommend to do laparoscopic cholecystectomy, possible open or cholang iogram, D/W benefits, risks and alternatives of the surgery, the risks - infection, bleeding, injury CBD, may need ERCP, pt understood, she agrees with the surgery, I answered all questions, History of Present Illness History of Present Illness History of Present Illness General Chief complaint: GI Assessment Stated complaint: HEARTBURN SINCE 10PM Time Seen by Provider: 01/08/20 04:10 History of Present Illness Maximum Pain Intensity: 7 This is a 49-year-old female presenting to the emergency department for evaluation of epigastric abdominal pain worsening over the past 4 to 5 hours. The patient states around 10 PM yesterday she began with her discomfort. She has been followed by her primary care physician the past few weeks for GERD-like symptoms. The patient has been keeping a food diary, and it does seem that higher fat foods seem to exacerbate her symptoms. She is on Prilosec, which has not significantly helped her symptoms. Patient does not have a history of gallbladder surgery. She rates her current pain a 7/10. She denies chance of . I ( Bertha Feldman MD ) got a call for consult acute cholecystitis, I reviewed pt's H/P, labs, U/S study with pt, pt is still have RUQ pain, Home Medications Home Medications Medication Instructions Recorded Confirmed Type epinephrine 0.3 mg IM UD PRN 01/08/20 01/08/20 History fluticasone propionate [Flovent 2 puff INHALATION BID 01/08/20 01/08/20 History HFA] levothyroxine 100 mcg PO DAILY 01/08/20 01/08/20 History polyethylene glycol 3350 [Miralax] 8.5 g PO DAILY 01/08/20 01/08/20 History sumatriptan succinate 100 mg PO UD PRN 01/08/20 01/08/20 History Allergies Allergy/AdvReac Type Severity Reaction Status Date / Time nut - unspecified Allergy Intermediate HIVES Unverified 01/08/20 04:17 iodine Allergy Unknown Unknown Verified 01/08/20 04:17 Penicillins Allergy Unknown Unknown Verified 01/08/20 04:17 Sulfa (Sulfonamide Allergy Unknown Unknown Verified 01/08/20 04:17 Antibiotics) sulfamethoxazole Allergy Unknown Unresponsiv Verified 01/08/20 04:17 e SEAFOOD Allergy Intermediate HIVES Uncoded 01/08/20 04:17 SULFA Allergy Mild RASH Uncoded 01/08/20 04:17 SEAFOOD,NUTS Allergy Unknown Unknown Uncoded 01/08/20 04:17 Past Med/Surg History Medical History (Updated 01/08/20 @ 06:48 by Nish Nair PA-C) Asthma Bronchitis Omental infarction (Acute) Surgical History (Updated 01/08/20 @ 06:48 by Nish Nair PA-C) H/O laminectomy (Resolved) Social History Preferred Language: Rw[place]an Feels Safe at Home: Yes Smoking Status: Former smoker Allergies Allergy/AdvReac Type Severity Reaction Status Date / Time nut - unspecified Allergy Intermediate HIVES Unverified 01/08/20 04:17 iodine Allergy Unknown Unknown Verified 01/08/20 04:17 Penicillins Allergy Unknown Unknown Verified 01/08/20 04:17 Sulfa (Sulfonamide Allergy Unknown Unknown Verified 01/08/20 04:17 Antibiotics) sulfamethoxazole Allergy Unknown Unresponsiv Verified 01/08/20 04:17 e SEAFOOD Allergy Intermediate HIVES Uncoded 01/08/20 04:17 SULFA Allergy Mild RASH Uncoded 01/08/20 04:17 SEAFOOD,NUTS Allergy Unknown Unknown Uncoded 01/08/20 04:17 Home Medications Home Medications Medication Instructions Recorded Confirmed Type epinephrine 0.3 mg IM UD PRN 01/08/20 01/08/20 History fluticasone propionate [Flovent 2 puff INHALATION BID 01/08/20 01/08/20 History HFA] levothyroxine 100 mcg PO DAILY 01/08/20 01/08/20 History polyethylene glycol 3350 [Miralax] 8.5 g PO DAILY 01/08/20 01/08/20 History sumatriptan succinate 100 mg PO UD PRN 01/08/20 01/08/20 History Patient History Medical History (Updated 01/08/20 @ 06:51 by Nish Nair PA-C) Asthma Bronchitis Omental infarction (Acute) Surgical History (Updated 01/08/20 @ 06:48 by Nish Nair PA-C) H/O laminectomy (Resolved) Social History Preferred Language: Rwandan Feels Safe at Home: Yes Smoking Status: Former smoker Review of Systems Review of Systems: All systems reviewed & are unremarkable except as noted in HPI & below Constitutional: as per Subjective / HPI Eyes: as per Subjective / HPI Ear, Nose, Mouth, Throat: as per Subjective / HPI Respiratory: as per Subjective / HPI asthma, bronchitis Cardiovascular: as per Subjective / HPI Gastrointestinal: as per Subjective / HPI RUQ pain Genitourinary: as per Subjective / HPI Integumentary: as per Subjective / HPI Neurologic: as per Subjective / HPI Psychiatric: as per Subjective / HPI Endocrine: as per Subjective / HPI Hematologic / Lymphatic: as per Subjective / HPI Physical Exam Constitutional: WD/WN, vitals as above well developed and well nourished Eyes: PERRL, conjunctivae normal, anicteric sclerae ENMT: external ear and nose normal, oropharynx normal Neck: trachea midline, no thyromegaly Respiratory: normal respiratory effort, lungs clear to auscultation Cardiovascular: RRR, no murmur, no edema Rate/Rhythm: regular rate and regular rhythm Heart Sounds: normal S1 and normal S2 Gastrointestinal (Abdomen): normal bowel sounds, soft, nontender, no hepatosplenomegaly Percussion/Palpation: + abdomen tender and abdomen soft tenderness at RUQ, no rebound pain, BS + Musculoskeletal: no cyanosis or clubbing, extremities motor strength 5/5 Skin: no rashes, warm and dry Neurologic: patellar DTR's 2+ bilat, sensation intact Psychiatric: Orientation: alert and oriented x 3 Results & Data Vital Signs (Past 12 Hours) Vital Signs Temp Pulse Pulse Resp BP BP Pulse Ox 01/08/20 06:03 64 16 154/89 H 99 01/08/20 04:53 99 01/08/20 04:17 36.5 C 19 152/92 H 01/08/20 04:06 36.8 C 66 20 163/78 H 100 Laboratory Results Abnormal lab results 01/08/20 01/08/20 01/08/20 Range/Units 04:40 04:40 04:40 WBC 12.62 H (4.8-10.8) K/uL MPV 11.8 H (7.4-10.4) fL Immature Gran # (Auto) 0.03 H (0.00-0.02) K/uL Neut # (Auto) 10.68 H (1.4-6.5) K/uL [place] # (Auto) 0.60 H (0.11-0.59) K/uL Chloride 109 H (98-107) mmol/L Glucose 132 H (70-99) mg/dl Urine Protein 1+ H (Negative) Urine Glucose (UA) Trace H (Negative) Urine Ketones Trace H (Negative) Urine RBC (Auto) 5-10 H (0-4) /hpf U Epithel Cells (Auto) >30 H (0-5) /lpf Diagnostic Findings U/S study- acute cholecystitis, with sludge
--- NOTE | 2020-01-08 07:20 | History & Physical Bridge Note ---
Date of Service January 08, 2020 History & Physical Bridge Note I have examined the patient, reviewed the History & Physical and in the interval since the performance of the History & Physical I have noted the following changes of clinical significance: no changes noted
--- NOTE | 2020-01-08 07:35 | Anesthesiology Consultation ---
Date of Service January 08, 2020 Assessment & Plan (1) Encounter for pre-operative examination: Chart Review Chart Review: Acceptable Risk for Surgery and Patient NOT seen in Pre Admission Testing Consults Requested none ASA ASA2 Proposed Anesthesia Anesthesia Type: General Risk / Benefits Reviewed With: PT / POA / Parent / Guardian, Accepts Plan and I nformed Consent Obtained History Surgery Operation Date: 01/08/20 10:45 Proposed Procedures p Laparoscopic Cholecystectomy - Bertha Feldman MD Height/Weight Height: 5 ft 5 in Weight: 78.3 kg Allergies Allergy/AdvReac Type Severity Reaction Status Date / Time sulfamethoxazole Allergy Severe Unresponsiv Verified 01/08/20 09:38 e nut - unspecified Allergy Intermediate HIVES Verified 01/08/20 09:38 Sulfa (Sulfonamide Allergy Intermediate RASH, Verified 01/08/20 09:38 Antibiotics) UNRESPONSIVE iodine Allergy Unknown Unknown Verified 01/08/20 09:38 Penicillins Allergy Unknown SISTER IS Verified 01/08/20 09:38 ALLERGIC- ADDED TO LIST "JUST IN CASE" SEAFOOD Allergy Intermediate HIVES Uncoded 01/08/20 09:38 SEAFOOD,NUTS Allergy Intermediate RASH, HIVES Uncoded 01/08/20 09:38 SULFA Allergy Mild RASH Uncoded 01/08/20 09:38 Medications Home Medications Medication Instructions Recorded Confirmed Last Taken epinephrine 0.3 mg IM UD PRN 01/08/20 01/08/20 Unknown fluticasone propionate [Flovent 2 puff INHALATION BID 01/08/20 01/08/20 Unknown HFA] levothyroxine 100 mcg PO DAILY 01/08/20 01/08/20 Unknown polyethylene glycol 3350 [Miralax] 8.5 g PO DAILY 01/08/20 01/08/20 Unknown sumatriptan succinate 100 mg PO UD PRN 01/08/20 01/08/20 Unknown NPO Date Last Intake of Fluids: 01/07/20 Time Last Intake of Fluids: 20:00 Last Intake of Fluids Comment: dinner Date Last Intake of Solids: 01/07/20 Time Last Intake of Solids: 20:00 Last Intake of Solids Comment: malox given while in ed Past Medical History Medical History (Updated 01/08/20 @ 10:04 by Pam Colon MD) Asthma Bronchitis Hypothyroid Omental infarction (Acute) Exercise / Class Metabolic Activity II 4-5 Yardwork/Stairs/Walk up hill Negative for chest pain or shortness of breath. Past Surgical History Surgical History H/O laminectomy (Resolved) Past Anesthesia History No Hx of Anesthesia Complications History of PONV No Hx of PONV Social History Smoking Status: Former smoker tobacco type: cigarettes Do You Dip or Chew Tobacco: No Hx Alcohol Use: Yes alcohol intake frequency: a few times a week Hx Substance Use: No Review of Systems Positive nausea, denies vomiting today Physical Exam Vital Signs Last Vital Signs Temp 37.3 C 01/08/20 09:42 Pulse 71 01/08/20 09:42 Resp 18 01/08/20 09:42 BP 161/93 H 01/08/20 09:42 Pulse Ox 100 01/08/20 09:42 Constitutional not obese ENMT Mouth: no TMJ abnormality and oral opening not small Thyromental Distance: > or= 3.5 Finger Breadths Mallampati Class: II Neck normal visual inspection; neck extension not limited Respiratory normal respiratory effort Auscultation: lungs clear to auscultation bilaterally Cardiovascular Rate/Rhythm: regular rate and regular rhythm Heart Sounds: no murmur Neurologic moves all extremities Psychiatric Orientation: alert and oriented x 3 Testing Laboratory Results 01/08/20 04:40 01/08/20 04:40 Urine Color Yellow 01/08/20 04:40 Urine Appearance Clear (Clear) 01/08/20 04:40 Urine pH 6.5 (4.5-7.5) 01/08/20 04:40 Ur Specific [place] 1.029 (1.000-1.030) 01/08/20 04:40 Urine Protein 1+ (Negative) H 01/08/20 04:40 Urine Glucose (UA) Trace (Negative) H 01/08/20 04:40 Urine Ketones Trace (Negative) H 01/08/20 04:40 Urine Nitrite Negative (Negative) 01/08/20 04:40 Ur Leukocyte Esterase Negative (Negative) 01/08/20 04:40 Urine WBC (Auto) 1-5 /hpf (0-5) 01/08/20 04:40 Urine RBC (Auto) 5-10 /hpf (0-4) H 01/08/20 04:40 U Hyaline Cast (Auto) 1-5 /lpf (0-5) 01/08/20 04:40 U Epithel Cells (Auto) >30 /lpf (0-5) H 01/08/20 04:40 Urine Bacteria (Auto) Negative (Negative) 01/08/20 04:40 01/08/20 09:21 POC Ur Test NEG
--- NOTE | 2020-01-08 07:53 | Ultrasound Report ---
BILIARY ULTRASOUND CLINICAL HISTORY: Epigastric pain COMPARISON STUDY: March 2017 FINDINGS: The pancreas appears normal as visualized. The liver demonstrates increased hepatic echogenicity consistent with hepatic steatosis. There is a 2 7 mm hypoechoic lesion within the right lobe of the liver. This previously measured 25 mm. This is no nspecific but could represent focal fatty sparing. The gallbladder is distended with gallbladder wall edema, gallbladder wall thickening, and biliary sl udge. There is pericholecystic fluid and a positive sonographic Flor sign. The findings are highly concerning for acute cholecystitis. The common bile duct measures 5 mm. There is no right-sided hydronephrosis. IMPRESSION: 1. Gallbladder wall thickening, pericholecystic fluid, gallbladder sludge, and positive sonographic M urphy sign. The findings are concerning for acute cholecystitis, and clinical correlation in this reg lew is advocated. 2. Hepatic steatosis. 27 mm hypoechoic lesion within the right hepatic lobe, previously measuring 25 mm. This could represent focal fatty sparing although other hepatic lesions could appear similar. If further workup is desired, an MRI would be considered the test of choice. ACT 112: Negative or not required by law. Electronically signed by: Nelson Ryan M.D. 01/08/2020 7:52 AM
[2020-01-08] MEDS ORDERED: MIDAZOLAM HCL 1 MG/ML 2ML VIAL ONE (09:12)
[2020-01-08] MEDS ORDERED: fentaNYL citrate 100 MCG/2 ML VIAL ONE ×2 (09:13→11:00)
[2020-01-08] MEDS ORDERED: PROPOFOL IV EMULSION 10 MG/ML 20 ML VIAL IV ONE (09:13)
[2020-01-08] MEDS ORDERED: LIDOCAINE HCL 2% 2 ML VIAL/AMP(20MG/ML) INFIL ONE (09:13)
[2020-01-08] MEDS ORDERED: ONDANSETRON INJ 2 MG/ML 2 ML VIAL ONE (09:13)
[2020-01-08] MEDS ORDERED: DEXAMETHASONE SOD INJ 4 MG/ML VIAL ONE (09:13)
[2020-01-08] MEDS ORDERED: LIDOCAINE HCL 1% 20 ML VIAL ONE (09:53)
[2020-01-08] MEDS ORDERED: BUPIVACAINE 0.5 % 5 MG/1 ML MPF 30ML VIAL ONE (09:53)
[2020-01-08] MEDS ORDERED: HYDROmorphone INJ 2 MG/ML SYR/VIAL IV PRN (10:10)
[2020-01-08] MEDS ORDERED: ONDANSETRON INJ 2 MG/ML 2 ML VIAL IV PRN ×2 (10:10→12:10)
[2020-01-08] MEDS ORDERED: ATROPINE SULFATE 0.1 MG/ML 10ML SYR IV PRN (10:10)
[2020-01-08] MEDS ORDERED: PROMETHAZINE HCL 12.5 MG in SODIUM CHLORIDE 0.9% 50 ML IV PRN (10:10)
[2020-01-08] MEDS ORDERED: ePHEDrine sulfate 50 MG/ML AMP IV PRN (10:10)
[2020-01-08] MEDS ORDERED: fentaNYL citrate 100 MCG/2 ML VIAL IV PRN (10:10)
[2020-01-08] MEDS ORDERED: SUCCINYLCHOLINE CHLORIDE 20 MG/ML 10 ML VIAL ONE (10:17)
--- NOTE | 2020-01-08 10:36 | Electrocardiogram Report ---
Test Reason : Blood Pressure : / mmHG Vent. Rate : 061 BPM Atrial Rate : 061 BPM P-R Int : 166 ms QRS Dur : 092 ms QT Int : 412 ms P-R-T Axes : 033 -24 053 degrees QTc Int : 414 ms Normal sinus rhythm Normal ECG When compared with ECG of 16-AUG-2008 12:58, No significant change was found Confirmed by Zoltan Cruz ([id number]) on 01/08/2020 10:35:39 AM Referred By: REFERRED SELF Confirmed By:Zoltan Cruz
[2020-01-08] MEDS: BACITRACIN OINT 15 GM TUBE ONE ×2 (11:55→11:58)
--- NOTE | 2020-01-08 12:07 | Post Operative Brief Note ---
Immediate Post Op Note v1 Date of Surgery January 08, 2020 Pre & Post Diagnosis Operation Date: 01/08/20 10:45 Pre-Op Diagnosis: Acute acalculous cholecystitis Post-Op Diagnosis: Acute acalculous cholecystitis I identified the patient and participated in the time-out.: Yes Procedure Operation Date: 01/08/20 10:45 Actual Procedures p Laparoscopic Cholecystectomy(Not Applicable) - Bertha Feldman MD Surgeon Bertha Feldman MD [employer] Manager medical technician assistant Estimated Blood Loss 10 Findings Consistent with Post-Op Diagnosis Fluids 1100ml Specimens gallbladder Anesthesia Type General Complications none Disposition Accompanied Patient To Recovery: Yes Disposition: Recovery Room Overlapping Procedure I was immediately available: during the entire case.
--- NOTE | 2020-01-08 13:13 | Anesthesiology Progress Note ---
Date of Service January 08, 2020 Anesthesia Post Procedure Vital Signs Vital Signs: Temp Pulse Pulse Pulse Pulse Resp BP 01/08/20 13:05 37.1 C 73 18 01/08/20 12:55 69 23 01/08/20 12:45 93 H 18 01/08/20 12:39 36.2 C L 101 H 10 L 01/08/20 09:42 37.3 C 71 18 01/08/20 09:13 65 18 01/08/20 08:33 69 18 01/08/20 07:29 89 20 01/08/20 06:03 64 16 01/08/20 04:53 01/08/20 04:17 36.5 C 19 01/08/20 04:06 36.8 C 66 20 163/78 H BP BP Pulse Ox 01/08/20 13:05 151/81 H 95 01/08/20 12:55 151/76 H 94 01/08/20 12:45 158/92 H 99 01/08/20 12:39 161/94 H 100 01/08/20 09:42 161/93 H 100 01/08/20 09:13 152/86 H 99 01/08/20 08:33 141/92 H 98 01/08/20 07:29 156/88 H 99 01/08/20 06:03 154/89 H 99 01/08/20 04:53 99 01/08/20 04:17 152/92 H 01/08/20 04:06 100 Pain Intensity Lower Abdomen: Pain Intensity: 2 Transfer of Care Handoff Completed per policy Notes Mental Status: alert / awake / arousable and participated in evaluation Patient Amnestic to Procedure: Yes Nausea / Vomiting: adequately controlled Pain: adequately controlled Airway Patency, RR, SpO2: stable & adequate BP & HR: stable & adequate Hydration State: stable & adequate Anesthetic Complications: no major complications apparent and Pt Satisfied with anesthetic care
[2020-01-08] MEDS ORDERED: OXYCODONE/ACETAMINOPHEN 5mg/325mg TAB PO PRN (13:26)
[2020-01-08] MEDS ORDERED: EPINEPHRINE ADULT AUTO-INJECT 0.3 MG SYR IM PRN (13:26)
[2020-01-08] MEDS ORDERED: HYDROmorphone INJ 0.5 MG/0.5 ML SYR IV PRN (13:26)
[2020-01-08] MEDS ORDERED: SUMAtriptan succinate 100 MG TAB PO PRN (13:26)
--- NOTE | 2020-01-08 13:42 | Operative Report (OR) ---
DATE OF OPERATION: 01/08/2020 PREOPERATIVE DIAGNOSIS: Acute cholecystitis. POSTOPERATIVE DIAGNOSIS: Acute cholecystitis. OPERATION: Laparoscopic cholecystectomy. SURGEON: Bertha Feldman MD. ANESTHESIA: General. ESTIMATED BLOOD LOSS: About 10 mL. FINDINGS: Acute cholecystitis, significant inflammation on the gallbladder wall, gallbladder wall thickening, edema, confirmed diagnosis of acute cholecystitis. COMPLICATIONS: None. INDICATIONS FOR THE PROCEDURE: This is a 49-year-old female who presented to ED with acute abdominal pain. The patient had CT and ultrasound diagnosis of acute cholecystitis and I recommended to do the laparoscopic cholecystectomy, possible open, possible cholangiogram. I did talk to the patient about the benefit, risk, alternate procedure. I indicated the risks may include but not limited such as bleeding, infection, injury to common bile duct, may need ERCP. The patient understands. She signed informed consent and I answered all questions. DETAILS OF PROCEDURE: We brought the patient to the OR, put the patient in the supine position. The patient received SCD on bilateral legs to prevent DVT. Also, the patient received 400 mg of Cipro IV for prophylactic antibiotic. The patient received general anesthesia without difficulty. The abdomen was prepped and draped in routine sterile fashion. After time-out, I injected local anesthesia by using 1% lidocaine mixed with 0.5% Marcaine just above umbilicus. I made a small incision just above umbilicus, opened fascia and opened peritoneum under direct vision, put a Rashida trocar in, connected to CO2 to create pneumoperitoneum. Flow rate is 6 liter per minute. Pressure not more than 14 mmHg. Once we got a nice pneumoperitoneum, we put a camera in, looked around. There were some omental adhesions on the gallbladder, gallbladder wall thickening, edema, so confirmed diagnosis of acute cholecystitis and there was some free fluid around the gallbladder and liver bed. Once confirmed diagnosis of acute cholecystitis, we put another two 5 mm trocar on the right upper quadrant, one is 11 trocar on the epigastric area. Once all trocars are in, we used a grasper to hold the gallbladder. The gallbladder had significant distention. We used a large needle to decompress the gallbladder first. Then, we used the grasper to hold the base of gallbladder, put a direction to the diaphragm. Another grasper to hold the pouch of gallbladder, put the latter to expose the triangle of Calot. Cystic duct was identified and mobilized. Cystic duct is dilatation about 8 mm, so I used a 10 mm metal clip on the proximal cystic duct x2, around the distal cystic duct x1. Then used a scissor for transection of cystic duct and rechecked, no bile leak, no active bleeding. Cystic artery was identified and mobilized. I put two 5 mm metal clips on the proximal cystic artery, 1 on the distal cystic artery. Then used a scissor for transection of cystic artery. Rechecked, no active bleeding. Then we used the Bovie to take down gallbladder from the liver bed. Rechecked, no active bleeding, no bile leak from liver bed. Then, we removed gallbladder through the catch bag. Then we reinserted Rashida trocar in, connected to CO2 to create pneumoperitoneum. Again looked around the abdomen, no active bleeding, no bile leak from liver bed. Then we removed all trocar under direct vision. No active bleeding from the trocar sites. Pneumoperitoneum was released. Then I closed the umbilical incision and fascial layer by using #1 Vicryl [id number] x2, closed subcutaneous layer by using 2-0 Vicryl interrupted layer, closed skin by using 4-0 Vicryl continuous running and closed the epigastric incision, fascial layer by using #1 Vicryl [id number] x2, subcutaneous layer by using 2-0 Vicryl interrupted layer, closed skin by using 4-0 Vicryl interrupted layer. Closed another two 5 mm trocar site skin only by using 4-0 Vicryl. Then we put the dressing on. The patient tolerated the procedure well. All instrument, needle and sponge count were correct x2 at the end of the case. The patient transferred to Recovery Room in stable condition. Specimen sent to Pathology. I attest to the content of the Intraoperative Record and any orders documented therein. Any exceptions are noted below. [place]
[2020-01-08] MEDS: LACTATED RINGER'S 1,000 ML IV SCH ×2 (13:53→23:26)
[2020-01-08 19:21] LABS: Appearance Urine Clear (Clear); Bilirubin Urine Negative (Negative); Blood Urine Negative (Negative); Color Urine Yellow; Glucose Urine UA 2+ (Negative); Ketones Urine Negative (Negative); Leukocyte Esterase Urine Negative (Negative); Nitrite Urine Negative (Negative); Protein Urine Negative (Negative); Specific Gravity Urine 1.012 (1.000-1.030); Urobilinogen Urine Negative (Negative); pH Urine 6.5 (4.5-7.5)
[2020-01-09 06:13] LABS: Basophils # (auto) 0.01 K/uL (0-0.2); Basophils % (auto) 0.1 %; Hematocrit (blood only) 37.3 % (37-47); Hemoglobin 12.4 g/dL (12.0-16.0); Immature Granulocytes # (auto) 0.03 K/uL (0.00-0.02); Immature Granulocytes % (auto) 0.3 %; Lymphocytes # (auto) 1.65 K/uL (1.2-3.4); Lymphocytes % (auto) 14.4 %; Mean Corpuscular Hemoglobin 31.8 pg (25-34); Mean Corpuscular Hgb Conc 33.2 g/dL (32-36); Mean Corpuscular Volume 95.6 fL (80-100); Mean Platelet Volume 11.7 fL (7.4-10.4); Monocytes # (auto) 0.83 K/uL (0.11-0.59); Monocytes % (auto) 7.3 %; Neutrophils % (auto) 77.9 %; Platelet Count 227 K/uL (130-400); RDW Coefficient of Variation 13.6 % (11.5-14.5); RDW Standard Deviation 47.3 fL (36.4-46.3); White Blood Count 11.42 K/uL (4.8-10.8)
[2020-01-09] MEDS ORDERED: LEVOTHYROXINE SODIUM 100 MCG TABLET PO SCH (06:30)
[2020-01-09 06:49] LABS: Albumin Level 3.1 gm/dl (3.4-5.0); BUN Creatinine Ratio 11.3 (10-20); Calcium 8.6 mg/dl (8.5-10.1); Creatinine Clr Calc Pharmacy 80.9 ml/min; Est GFR (African American) 90.7; Est GFR (Non-African American) 78.2
[2020-01-09 06:51] LABS: Albumin Globulin Ratio 0.9 (0.9-2); Bilirubin,Total 0.4 mg/dl (0.2-1); Globulin 3.3 gm/dl (2.5-4.0); Total Protein 6.4 gm/dl (6.4-8.2)
[2020-01-09] MEDS ORDERED: FLUTICASONE FUROATE 100MCG 14 PUFFS/INHALER INH SCH (09:00)
[2020-01-09] MEDS ORDERED: POLYETHYLENE (MIRALAX) 17 GM PACK PO SCH (09:00)
--- NOTE | 2020-01-09 09:26 | Surgery Progress Note ---
Date of Service January 09, 2020 Assessment & Plan (1) Acute acalculous cholecystitis: Postoperative day #1 status post laparoscopic cholecystectomy Doing well Encouraged ambulation We will order regular diet for lunch If she tolerates the regular diet continues to do well can discharge this a fternoon White blood cell count has returned back to normal Subjective Postoperative day #1 status post laparoscopic cholecystectomy Feels pretty well Abdominal discomfort is described as sore Tolerated liquid diet Passed flatus Denies nausea Physical Exam Gastrointestinal (Abdomen): Inspection/Auscultation: + abdominal surgical incision (Clean dry and intact); abdomen not distended Percussion/Palpation: + abdomen tender (Mild mostly incisional) and abdomen soft Results & Data Vital Signs (Past 12 Hours) Vital Signs Temp Pulse Pulse Resp BP Pulse Ox Pulse Ox 01/09/20 07:55 36.7 C 61 20 123/80 100 01/09/20 03:21 36.8 C 58 L 16 109/69 98 01/08/20 23:30 98 01/08/20 23:11 36.7 C 59 L 14 128/78 98 Laboratory Results 01/09/20 01/09/20 01/08/20 Range/Units 05:43 05:43 19:08 WBC 11.42 H (4.8-10.8) K/uL RBC 3.90 L (4.2-5.4) M/uL Hgb 12.4 (12.0-16.0) g/dL Hct 37.3 (37-47) % MCV 95.6 (80-100) fL MCH 31.8 (25-34) pg MCHC 33.2 (32-36) g/dL RDW Std Deviation 47.3 H (36.4-46.3) fL RDW Coeff of Benedict 13.6 (11.5-14.5) % Plt Count 227 (130-400) K/uL MPV 11.7 H (7.4-10.4) fL Immature Gran % (Auto) 0.3 % Neut % (Auto) 77.9 % Lymph % (Auto) 14.4 % [place] % (Auto) 7.3 % Eos % (Auto) 0.0 % Baso % (Auto) 0.1 % Immature Gran # (Auto) 0.03 H (0.00-0.02) K/uL Neut # (Auto) 8.90 H (1.4-6.5) K/uL Lymph # (Auto) 1.65 (1.2-3.4) K/uL [place] # (Auto) 0.83 H (0.11-0.59) K/uL Eos # (Auto) 0.00 (0-0.5) K/uL Baso # (Auto) 0.01 (0-0.2) K/uL Sodium 142 (136-145) mmol/L Potassium 4.0 (3.5-5.1) mmol/L Chloride 112 H (98-107) mmol/L Carbon Dioxide 25 (21-32) mmol/L Anion Gap 5.0 (3-11) BUN 10 D (7-18) mg/dl Creatinine 0.87 (0.6-1.2) mg/dl Est Cr Clr Drug Dosing 80.9 ml/min Est GFR ( Amer) 90.7 Est GFR (Non-Af Amer) 78.2 BUN/Creatinine Ratio 11.3 (10-20) Glucose 107 H (70-99) mg/dl Calcium 8.6 (8.5-10.1) mg/dl Total Bilirubin 0.4 (0.2-1) mg/dl AST 21 (15-37) U/L ALT 37 (12-78) U/L Alkaline Phosphatase 76 (45-117) U/L Total Protein 6.4 (6.4-8.2) gm/dl Albumin 3.1 L (3.4-5.0) gm/dl Globulin 3.3 (2.5-4.0) gm/dl Albumin/Globulin Ratio 0.9 (0.9-2) Urine Color Yellow Urine Appearance Clear (Clear) Urine pH 6.5 (4.5-7.5) Ur Specific [place] 1.012 (1.000-1.030) Urine Protein Negative (Negative) Urine Glucose (UA) 2+ H (Negative) Urine Ketones Negative (Negative) Urine Blood Negative (Negative) Urine Nitrite Negative (Negative) Urine Bilirubin Negative (Negative) Urine Urobilinogen Negative (Negative) Ur Leukocyte Esterase Negative (Negative)
[2020-01-10] MEDS ORDERED: PANTOprazole 40 MG TAB PO SCH (09:00)
--- NOTE | 2020-01-12 12:39 | Discharge Summary (DS) ---
ADMITTING DIAGNOSIS: Acute cholecystitis, cholelithiasis. DISCHARGE DIAGNOSIS: Same. OPERATION: Laparoscopic cholecystectomy. SURGEON: Bertha Feldman MD. DETAILS OF DISCHARGE SUMMARY: This is a 49-year-old female who presented to ED with acute abdominal pain. The patient had ultrasound diagnosis of acute cholecystitis with gallstone and patient required to do a laparoscopic cholecystectomy, possible open, possible cholangiogram. We took the patient to the OR on 01/09/2020; we did a laparoscopic cholecystectomy. The patient tolerated the procedure well and later on patient transferred to regular floor. After the procedure the patient is doing fine. She tolerated a clear diet and no significant abdominal pain, no nausea, no vomiting. PHYSICAL EXAMINATION: VITAL SIGNS: Temperature is 36.7, respiratory rate 18, heart rate is 77, blood pressure is 112/65, O2 saturation 96% on room air. GENERAL: The patient is alert, awake, oriented x3. HEENT: Within normal limitation. NEUROLOGIC: Intact. No distress. NECK: No JVD. CHEST: Bilateral lung sounds clear. HEART: Normal S1, S2. No murmurs. ABDOMEN: Soft, nondistended. All incisions intact. No redness, no drainage. Bowel sounds positive. No significant tenderness. EXTREMITIES: No edema. PLAN: The patient wanted to go home. We gave the patient postop care instructions. I will follow up the patient in 1 week in my office and the patient understands.
== END 2020-01-09 14:52 | disposition home or self-care (01) ==
LOC: ED 04:02 → 3E 09:24 → OR 09:24